=== PATIENT | male | born 2000 | race Caucasian/White ===

== ENCOUNTER 2023-08-28 13:12 | Emergency (ER) | payer OTHER, SELFPAY ==
[2023-08-28 14:00] VITALS: BP 129/75; PULSE 72; RESP 18; TEMP 37; O2SAT 96; BMI 31.5
[2023-08-28 14:07] LABS: UTC Influenza A Antigen Negative (Negative); UTC Influenza B Antigen Negative (Negative)
[2023-08-28 14:32] LABS: UTC Strep Screen (Rapid) Negative (Negative)
--- NOTE | 2023-08-28 14:36 | EXP.UTC ---
Discharge Plan Disposition Patient Disposition: Home, Self-Care Condition: Good Prescriptions Prescriptions: New promethazine-DM 6.25-15 mg/5 mL syrup 5 ml PO Q6H PRN (Reason: cough) Qty: 118 0RF Referrals Follow up/Referrals: Alli Mercado [Primary Care Provider] - See instructions Clinical Impressions Clinical Impression: Upper respiratory infection, acute Instructions Patient Instructions: DI for Viral Upper Respiratory Infection -- Adult Discharge ED Provider: Deborah Blankenship [facility] [place] General Stated complaint: body aches cough Mode of Arrival: Ambulatory Source of Information: Patient Limitations: No Limitations Time Seen by Provider: 08/28/23 14:10 Description of Symptoms (Recalled from Triage Doc. by RN): cough, and body aches HEENT Symptoms (Recalled from RN notes): Yes Resp Symptoms (Recalled from RN notes): No Skin Symptoms (Recalled from RN notes): No MS Symptoms (Recalled from RN notes): No Functional Status (Recalled from RN notes): n/a History of Present Illness Provider Complaint: Pt relates that he has been sick for the last 3 days and had fevers off and on. He reports generalized malaise and a sore throat. Related Data Previous Rx's Medication Instructions Recorded promethazine-DM 6.25 mg-15 mg/5 mL 5 ml PO Q6H PRN cough #118 mL 08/28/23 oral syrup Allergies Allergy/AdvReac Type Severity Reaction Status Date / Time No Known Allergies Allergy Verified 08/28/23 14:18 Worker's Comp Is this a Worker's Comp case?: No [facility] Disclaimer: The information contained in this section may have been updated after the patient was seen, as this information can be updated by other users. Social History Smoking Status: Never smoker alcohol intake: never current occupational status: employed Travel in the last 8 weeks: None ROS Obtained: Yes All systems reviewed & no additional complaints except as documented Constitutional Constitutional: Reports system reviewed and no additional complaints, except as documented, Reports fever(s) and Reports malaise Eyes Eyes: Reports system reviewed and no additional complaints, except as documented ENT Ears, Nose, Mouth, and Throat: Reports system reviewed and no additional complaints, except as documented, Reports nasal discharge, Reports odynophagia and Reports sore throat Cardiovascular Cardiovascular: Reports system reviewed and no additional complaints, except as documented Respiratory Respiratory: Reports system reviewed and no additional complaints, except as documented Gastrointestinal Gastrointestingal: Reports system reviewed and no additional complaints, except as documented and odynophagia Genitourinary Male Genitourinary: Reports system reviewed and no additional complaints, except as documented Musculoskeletal Musculoskeletal: Reports system reviewed and no additional complaints, except as documented and Reports myalgias Integumentary/Breasts Skin/Breast: Reports system reviewed and no additional complaints, except as documented Neurologic Neurologic: Reports system reviewed and no additional complaints, except as documented Endocrine Endocrine: Reports system reviewed and no additional complaints, except as documented Hematologic/Lymphatic Henatologic/Lymphatic: Reports system reviewed and no additional complaints, except as documented Allergic/Immunologic Allergic/Immunologic: Reports system reviewed and no additional complaints, except as documented Physical Exam General General appearance: alert and in no apparent distress Head Head exam: atraumatic and normocephalic Eye Eye exam: Present normal appearance ENT ENT exam: Present other Expanded ENT Exam External ear exam: Present normal external inspection Nasal speculum exam: Bilateral: other (clear drainage) Mouth exam: Present normal external inspection Teeth exam: Present normal inspection Throat exam: Present tonsillar erythema and tonsillomegaly Neck Neck
[2023-08-28 14:57] VITALS: BP 129/75; PULSE 72; RESP 18; TEMP 37; O2SAT 96
== END 2023-08-28 14:57 | disposition home or self-care (01) ==
PROVIDERS: Emergency Provider Nurse Practitioner; PCP Pediatrics
DX: R05.9 Cough, unspecified (principal); J06.9 Acute upper respiratory infection, unspecified; R50.9 Fever, unspecified; R07.0 Pain in throat; M79.18 Myalgia, other site; R53.81 Other malaise; R09.81 Nasal congestion; B34.9 Viral infection, unspecified
CPT/HCPCS: 87635; 87804; 87880; 99204; 99212; G0463

== ENCOUNTER 2023-10-01 17:32 | Emergency (ER) | payer OTHER, SELFPAY ==
[2023-10-01 17:46] VITALS: BP 161/88; PULSE 104; RESP 16; TEMP 36.7; O2SAT 96; BMI 32.3
--- NOTE | 2023-10-01 19:25 | HMH.EDGENADL ---
Discharge Plan Disposition Patient Disposition: Home, Self-Care Chief Complaint: Head Injury Prescriptions Prescriptions: No Action No Known Home Medications Referrals Follow up/Referrals: Alli Mercado [Primary Care Provider] - See instructions Activity Restrictions/Add. Instructions Additional Instructions/Restrictions: At this time it was felt you are safe to be discharged home. If new or worsening symptoms please do not hesitate to return the emergency department. Clinical Impressions Clinical Impression: Forehead laceration, Traumatic hematoma of forehead Discharge ED Provider: Allan King General Adult HPI General Chief complaint: Head Injury Stated complaint: AO 10/01/23 1530 laceration forhead Time Seen by Provider: 10/01/23 18:30 Mode of Arrival: Ambulatory Source of Information: Patient Limitations: No Limitations Description of Symptoms (Recalled from ER Triage Doc. by RN): Pt. states he was working on a vehicle and got a [place] bar stuck, so he pulled back hard and hit himself in the forehead. He has a 1 in vertical gash on his forehead. It is not bleeding at this time. History of Present Illness HPI narrative: Patient is a 23-year-old male with no pertinent past medical history, no anticoagulants who presents emergency department for evaluation of traumatic injury sustained to his head. Patient struck himself in the head with a crowbar while fixing a vehicle, no LOC. He did have transient nausea which has resolved prior to my evaluation. No other acute traumatic complaints at this time. Last Tdap greater than 5 years. Related Data Home Medications Medication Instructions Recorded Confirmed No Known Home Medications 10/01/23 10/01/23 Allergies Allergy/AdvReac Type Severity Reaction Status Date / Time No Known Allergies Allergy Verified 10/01/23 17:49 [facility] Disclaimer: The information contained in this section may have been updated after the patient was seen, as this information can be updated by other users. Medical History (Updated 10/01/23 @ 19:28 by Allan King MD) No significant past medical history Surgical History (Updated 10/01/23 @ 17:49 by Anusha Juarez RN) No significant past surgical history Family History (Updated 10/01/23 @ 17:49 by Anusha Juarez RN) Other No significant family history Social History (Updated 10/01/23 @ 17:49 by Anusha Hill, RN) Smoking Status: Current every day smoker alcohol intake: never current occupational status: employed Travel in the last 8 weeks: None ROS Obtained: Yes Systems reviewed as appropriate & no additional complaints except as documented Physical Exam General General appearance: alert and in no apparent distress Head Head exam: normocephalic and other (Small left forehead frontal hematoma that is oozing blood.) Eye Eye exam: Present PERRL and EOMI ENT ENT exam: Present mucous membranes moist Neck Neck exam: Present normal inspection Chest Chest inspection: Present normal inspection and symmetric chest wall rise Respiratory Respiratory exam: Present normal lung sounds bilaterally; Absent respiratory distress Cardiovascular Cardiovascular exam: Present regular rate and normal rhythm Abdominal Exam Abdominal exam: Present soft Extremities Exam Extremities exam: Present normal inspection Neurological Exam Neurological exam: Present alert and CN II-XII intact; Absent motor sensory deficit Psychiatric Psychiatric exam: Present normal affect Skin Skin exam: Present warm and dry Medical Decision Making Arnaud Inquiry Pt receiving controlled substance: No Vital Signs: 10/01/23 17:46 Temperature 98.0 F Temperature Source Oral Pulse Rate [Right Brachial] 104 H Respiratory Rate 16 Blood Pressure [Right Arm] 161/88 H Blood Pressure Mean [Right Arm] 112 Blood Pressure Source [Right Arm] Automatic Cuff Blood Pressure Position [Right Arm] Sitting 02 Sat by Pulse Oximetry 96 Oxygen Delivery Method Room Air Medical Decision Narrative: In summary patient is a 23-year-old male with past medical history described above who presents emergency department for evaluation of traumatic injury sustained from a crowbar. Patient is hemodynamically stable nontoxic-appearing arrival, afebrile. Patient has a small wound on his forehead that is amenable to glue. Patient was in the emergency department for 2 hours, had no changes in clinical status, no vomiting, and has a nonfocal neurologic exam. Given this noncontrasted CT scan of the head was considered but will be deferred at this time. Tdap updated. Patient was given multiple return precautions and verbalized understanding. Procedure: Procedure performed was laceration repair. Procedure performed by Allan King. Wound was cleaned with Hibiclens, location of wound was left forehead, 0.5 cm laceration with underlying small hematoma. Wound was glued with good effect with Dermabond. Critical Care Critical Care Time Critical Care Time: No
--- NOTE | 2023-10-01 19:29 | PC.NURSE ---
in room talking with patient at this time.
[2023-10-01 19:33] VITALS: BP 152/81; PULSE 81; RESP 16; TEMP 36.6
[2023-10-01] MEDS: TET/DIPHTH/PERT-ADULT 0.5ML SYRINGE 0.5 ML IM (19:33)
== END 2023-10-01 19:43 | disposition home or self-care (01) ==
PROVIDERS: Emergency Provider Emergency Medicine; PCP Pediatrics
DX: S01.81XA Laceration without foreign body of other part of head, initial encounter (principal); R11.0 Nausea; F17.200 Nicotine dependence, unspecified, uncomplicated; W22.8XXA Striking against or struck by other objects, initial encounter
CPT/HCPCS: 12011; 90471; 90715; 99283